=== PATIENT | female | born 1990 | race African-American/Black ===

== ENCOUNTER 2017-10-07 08:56 | Emergency (ER) | payer OTHER ==
[2017-10-07] MEDS ORDERED: Erythromycin Base 0.5% Ophth Oint 3.5 gm Tube ONE (09:06)
== END 2017-10-07 09:17 | disposition home or self-care (01) ==
LOC: BURERS 08:56
DX: H10.9 Unspecified conjunctivitis (principal); I10 Essential (primary) hypertension; J45.909 Unspecified asthma, uncomplicated; F32.9 Major depressive disorder, single episode, unspecified; F41.9 Anxiety disorder, unspecified
CPT/HCPCS: 99282

== ENCOUNTER 2018-06-12 07:55 | Emergency (ER) | payer OTHER ==
[2018-06-12] MEDS ORDERED: AMOXicillin 250 MG CAP ONE (08:06)
[2018-06-12] MEDS ORDERED: Ibuprofen 800 MG TAB ONE (08:11)
== END 2018-06-12 18:40 | disposition home or self-care (01) ==
LOC: BURERS 07:55
DX: H66.91 Otitis media, unspecified, right ear (principal); I10 Essential (primary) hypertension; F41.9 Anxiety disorder, unspecified; F32.9 Major depressive disorder, single episode, unspecified; J45.909 Unspecified asthma, uncomplicated
CPT/HCPCS: 99282

== ENCOUNTER 2018-06-13 00:15 | Emergency (ER) | payer OTHER ==
[2018-06-13] MEDS ORDERED: Morphine 10 MG/ML VIAL ONE (00:33)
[2018-06-13] MEDS ORDERED: Ketorolac Tromethamine 60 MG/2 ML VIAL ONE (00:40)
== END 2018-06-13 00:48 | disposition home or self-care (01) ==
LOC: BURERS 00:15
DX: H62.41 Otitis externa in other diseases classified elsewhere, right ear (principal); I10 Essential (primary) hypertension; F41.9 Anxiety disorder, unspecified; F32.9 Major depressive disorder, single episode, unspecified
CPT/HCPCS: 96372; J1885; J2270

== ENCOUNTER 2020-01-25 00:41 | Emergency (ER) | payer OTHER ==
[2020-01-25] MEDS ORDERED: ALPRAZolam 0.5 MG TAB ONE (00:53)
--- NOTE | 2020-01-25 09:45 | RAD ---
CHEST 2 VIEWS: Date: 01/25/2020 Comparison made with the 09/15/09 study. The heart is normal in size and the lungs are clear. There is no vascular congestion, edema, or pleur al effusion. There is no sign of aspiration pneumonia. The trachea is midline. IMPRESSION: No acute thoracic findings. POS: HOME
== END 2020-01-25 01:39 | disposition home or self-care (01) ==
LOC: BURERS 00:41
DX: F41.0 Panic disorder [episodic paroxysmal anxiety] (principal); R06.02 Shortness of breath; I10 Essential (primary) hypertension; J45.909 Unspecified asthma, uncomplicated; F41.9 Anxiety disorder, unspecified; F32.9 Major depressive disorder, single episode, unspecified; Z79.51 Long term (current) use of inhaled steroids; Z79.899 Other long term (current) drug therapy
CPT/HCPCS: 71046; 93005; 94760

== ENCOUNTER → 2020-02-17 | Emergency (ER) | payer OTHER ==
[2020-02-17 22:10] LABS: BHCG - Serum Negative (NEGATIVE); Pregs Control Background? CLEAR/WHITE (CLR/WHITE); Pregs Control Bar Appear? YES (CONTROL BAR)
[2020-02-17 22:23] LABS: ALT (SGPT) 33 U/L (8-55); AST (SGOT) 31 U/L (5-34); Albumin 4.1 g/dL (3.5-5.0); Alkaline Phosphatase 85 U/L (40-110); Anion Gap 17 mmol/L (10-20); BUN (Urea Nitrogen) 11 mg/dL (7.0-18.7); Bilirubin, Total 0.3 mg/dL (0.2-1.2); Calc. Creatinine Clearance 0 mL/min (70-130); Calcium 8.9 mg/dL (7.8-10.44); Carbon Dioxide 20 mmol/L (22-29); Chloride 106 mmol/L (98-107); Estimated GFR-MDRD Greater than 90; Globulin 3.9 g/dL (2.4-3.5); Glucose 119 mg/dL (70-105); Potassium 4.6 mmol/L (3.5-5.1); Sodium 138 mmol/L (136-145)
[2020-02-17 22:24] LABS: Band 3 % (5-11); Eosinophils 1 % (0-10); Hemoglobin 14.4 g/dL (12.0-16.0); Lymphocytes 32 % (21-51); MDiff Complete? YES; Mean Corpuscular HGB CONC 33.3 g/dL (32.0-36.0); Mean Corpuscular Hemoglobin 30.9 pg (27.0-31.0); Mean Corpuscular Volume 92.9 fL (78.0-98.0); Mean Platelet Volume 7.4 fL (7.4-10.4); Monocytes 14 % (0-10); Neutrophil 48 % (42-75); Platelet Count 237 thou/uL (130-400); Platelet Morphology Comment Appears Adequate; RBC Morphology Normal; Reactive Lymphocytes 2 % (0-10); Red Blood Cell (RBC) Count 4.65 mill/uL (4.20-5.40); Vacuoles SLIGHT; White Blood Cell (WBC) Count 3.9 thou/uL (4.8-10.8)
--- NOTE | 2020-02-17 22:57 | RAD ---
PORTABLE CHEST: 02/17/20 An AP portable film at 1016 is compared with a 01/25/2020 study. The heart size is normal. The lungs are probably clear. The only area in question is the left base, o ften difficult to see well on portable films. If there are any signs and symptoms of pneumonia, then she might need a follow-up PA and lateral view. If not, the finding can probably be safely ascribed to portable technique and slight rotation. The mediastinum appears normal. IMPRESSION: Probably negative study. See above. POS: HOME
== END ==
LOC: BURERS 21:36
DX: R07.9 Chest pain, unspecified (principal); I10 Essential (primary) hypertension; J45.909 Unspecified asthma, uncomplicated; F41.9 Anxiety disorder, unspecified; F32.9 Major depressive disorder, single episode, unspecified; Z79.899 Other long term (current) drug therapy
CPT/HCPCS: 71045; 80053; 84484; 84703; 85025; 85379; 93005

== ENCOUNTER 2020-04-13 14:22 | Emergency (ER) | payer OTHER | END 2020-04-13 14:42 | disposition home or self-care (01) | LOC: BURERS 14:22 | DX: I10 Essential (primary) hypertension (principal); J45.909 Unspecified asthma, uncomplicated; F41.9 Anxiety disorder, unspecified; F32.9 Major depressive disorder, single episode, unspecified; Z79.899 Other long term (current) drug therapy | CPT/HCPCS: 99281 ==

== ENCOUNTER 2020-09-10 10:08 | Emergency (ER) | payer OTHER ==
[2020-09-10] MEDS ORDERED: diphenhydrAMINE 50 MG/ML VIAL ONE (11:21)
[2020-09-10] MEDS ORDERED: Metoclopramide HCl 10 MG/2 ML VIAL ONE (11:21)
[2020-09-10 11:28] LABS: #Basophils 0.1 thou/uL (0.0-0.2); #Eosinphils 0.1 thou/uL (0.0-0.7); #Lymphocytes 1.1 thou/uL (1.20-3.40); #Monocytes 0.6 thou/uL (0.11-0.59); #Neutrophils 3.1 thou/uL (1.40-6.50); %Eosinophils 1.3 % (0.0-10.0); %Lymphocytes 22.2 % (21.0-51.0); %Monocytes 11.9 % (0.0-10.0); %Neutrophils 63.6 % (42.0-75.0); Mean Corpuscular HGB CONC 33.6 g/dL (32.0-36.0); Mean Corpuscular Volume 92.3 fL (78.0-98.0); Mean Platelet Volume 7.1 fL (7.4-10.4); Platelet Count 236 thou/uL (130-400); RBC Distribution Width 11.1 % (11.5-14.5); Red Blood Cell (RBC) Count 4.53 mill/uL (4.20-5.40); White Blood Cell (WBC) Count 4.8 thou/uL (4.8-10.8)
[2020-09-10 11:39] LABS: Pregnancy Test - Urine (BHCG) Negative (Negative); Pregu Control Background? CLEAR/WHITE (CLR/WHITE); Pregu Control Bar Appear? YES (CONTROL BAR)
[2020-09-10] MEDS ORDERED: Ketorolac Tromethamine 30 MG/ML VIAL ONE (11:43)
[2020-09-10 11:46] LABS: ALT (SGPT) 45 U/L (8-55); AST (SGOT) 35 U/L (5-34); Alkaline Phosphatase 77 U/L (40-110); Anion Gap 14 mmol/L (10-20); BUN (Urea Nitrogen) 12 mg/dL (7.0-18.7); Bilirubin, Total 0.4 mg/dL (0.2-1.2); Calc. Creatinine Clearance 0 mL/min (70-130); Calcium 9.1 mg/dL (7.8-10.44); Carbon Dioxide 24 mmol/L (22-29); Chloride 102 mmol/L (98-107); Estimated GFR-MDRD Greater than 90; Globulin 3.7 g/dL (2.4-3.5); Glucose 117 mg/dL (70-105); Protein, Total 7.7 g/dL (6.0-8.3); Sodium 136 mmol/L (136-145)
== END 2020-09-10 12:52 | disposition home or self-care (01) ==
LOC: BURERS 10:08
DX: R11.2 Nausea with vomiting, unspecified (principal); R19.7 Diarrhea, unspecified; R51.9 Headache, unspecified; F41.9 Anxiety disorder, unspecified; F32.9 Major depressive disorder, single episode, unspecified; J45.909 Unspecified asthma, uncomplicated; I10 Essential (primary) hypertension; Z79.899 Other long term (current) drug therapy
CPT/HCPCS: 36415; 80053; 81025; 85025; 96365; 96375; J1200; J1885; J2765

== ENCOUNTER 2020-11-06 00:26 | Emergency (ER) | payer OTHER ==
[2020-11-06] MEDS ORDERED: predniSONE 20 MG TAB ONE (01:05)
[2020-11-06 20:01] LABS: SARS-CoV-2 MS2 Positive; SARS-CoV-2 N Gene Positive; SARS-CoV-2 S Gene Negative; SARS-CoV-2 by NAA DETECTED (NotDetected); SARS-CoV-2 orf1ab Positive
== END 2020-11-06 01:05 | disposition home or self-care (01) ==
LOC: BURERS 00:26
DX: U07.1 COVID-19 (principal); J02.9 Acute pharyngitis, unspecified; E66.9 Obesity, unspecified; I10 Essential (primary) hypertension; J45.909 Unspecified asthma, uncomplicated; Z79.899 Other long term (current) drug therapy
CPT/HCPCS: 87081; 87430; 87635; 99283; J7512; U0003

== ENCOUNTER 2020-11-11 12:44 | Emergency (ER) | payer OTHER | END 2020-11-11 13:28 | disposition home or self-care (01) | LOC: BURERS 12:44 | DX: U07.1 COVID-19 (principal); J45.901 Unspecified asthma with (acute) exacerbation; E66.9 Obesity, unspecified; I10 Essential (primary) hypertension; Z79.899 Other long term (current) drug therapy | CPT/HCPCS: 99284 ==

== ENCOUNTER 2021-07-14 23:07 | Emergency (ER) | payer OTHER ==
[2021-07-14] MEDS ORDERED: predniSONE 20 MG TAB ONE (23:27)
== END 2021-07-14 23:45 | disposition home or self-care (01) ==
LOC: BURERS 23:07
DX: J04.0 Acute laryngitis (principal); R06.00 Dyspnea, unspecified; I10 Essential (primary) hypertension; J45.909 Unspecified asthma, uncomplicated; E66.9 Obesity, unspecified; Z79.899 Other long term (current) drug therapy
CPT/HCPCS: 94640; J7512; J7620

== ENCOUNTER 2021-07-21 11:25 | Emergency (ER) | payer OTHER ==
[~2021-07-21 11:25] MED LIST: Iopamidol 370 76% 100 ML VIAL ONE
[2021-07-21 11:56] LABS: Bilirubin Small (Negative); Blood, Urine Negative (Negative); Clarity Cloudy (Clear); Glucose, Urine (Dipstick) Negative (Negative); Ketone, Urine Trace mg/dL (Negative); Leukocyte Negative (Negative); Nitrite Negative (Negative); Protein, Urine (Dipstick) Trace mg/dL (Neg-Trace)
[2021-07-21 12:00] LABS: Pregnancy Test - Urine (BHCG) Negative (Negative)
[2021-07-21 12:01] LABS: Pregu Control Background? CLEAR/WHITE (CLR/WHITE); Pregu Control Bar Appear? YES (CONTROL BAR)
[2021-07-21 12:02] LABS: Hemoglobin 14.4 g/dL (12.0-16.0); Mean Corpuscular HGB CONC 33.8 g/dL (32.0-36.0); Mean Corpuscular Hemoglobin 31.4 pg (27.0-31.0); Mean Corpuscular Volume 92.7 fL (78.0-98.0); Mean Platelet Volume 7.2 fL (7.4-10.4); Platelet Count 224 thou/uL (130-400); RBC Distribution Width 11.2 % (11.5-14.5); White Blood Cell (WBC) Count 3.4 thou/uL (4.8-10.8)
[2021-07-21 12:12] LABS: ALT (SGPT) 24 U/L (8-55); AST (SGOT) 19 U/L (5-34); Alkaline Phosphatase 77 U/L (40-110); Anion Gap 13 mmol/L (10-20); BUN (Urea Nitrogen) 16 mg/dL (7.0-18.7); Bilirubin, Total 0.5 mg/dL (0.2-1.2); Calc. Creatinine Clearance 0 mL/min (70-130); Calcium 9.1 mg/dL (7.8-10.44); Carbon Dioxide 21 mmol/L (22-29); Chloride 107 mmol/L (98-107); Glucose 116 mg/dL (70-105); Sodium 137 mmol/L (136-145)
[2021-07-21 12:22] LABS: Band 2 % (5-11); Eosinophils 1 % (0-10); Lymphocytes 34 % (21-51); MDiff Complete? YES; Monocytes 25 % (0-10); Neutrophil 35 % (42-75); Reactive Lymphocytes 3 % (0-10)
[2021-07-21] MEDS ORDERED: Ketorolac Tromethamine 30 MG/ML VIAL ONE (12:26)
[2021-07-21] MEDS ORDERED: cefTRIAXone\\ROCEPHIN 500 MG VIAL ONE (13:32)
[2021-07-21] MEDS ORDERED: Sodium Chloride 0.9% 100 ML ONE (13:32)
[2021-07-21] MEDS ORDERED: Azithromycin 500 MG VIAL ONE (14:15)
[2021-07-24 20:09] LABS: Chlamydia by PCR Not Detected (NotDetected); GC by PCR Not Detected (NotDetected)
== END 2021-07-21 14:36 | disposition short-term general hospital (02) ==
LOC: BURERS 11:25
DX: R10.32 Left lower quadrant pain (principal); I10 Essential (primary) hypertension; F17.210 Nicotine dependence, cigarettes, uncomplicated
CPT/HCPCS: 51701; 74177; 80053; 81003; 81025; 85025; 87480; 87491; 87510; 87591; 87660; 94760; 96365; 96375; J0456; J0696; J1885; J3490; Q9967

== ENCOUNTER 2022-05-19 15:43 | Emergency (ER) | payer BC | END 2022-05-19 16:13 | disposition home or self-care (01) | LOC: BURERS 15:43 | DX: U07.1 COVID-19 (principal); I10 Essential (primary) hypertension; J45.909 Unspecified asthma, uncomplicated; E66.9 Obesity, unspecified; Z68.45 Body mass index [BMI] 70 or greater, adult | CPT/HCPCS: 99283; U0003; U0005 ==

== ENCOUNTER 2022-05-23 12:28 | Emergency (ER) | payer BC ==
[2022-05-23] MEDS ORDERED: Acetaminophen 500 MG TAB ONE (12:53)
== END 2022-05-23 13:00 | disposition home or self-care (01) ==
LOC: BURERS 12:28
DX: H60.501 Unspecified acute noninfective otitis externa, right ear (principal); H69.81 Other specified disorders of Eustachian tube, right ear; J45.909 Unspecified asthma, uncomplicated; E66.9 Obesity, unspecified; I10 Essential (primary) hypertension; Z79.899 Other long term (current) drug therapy; Z79.51 Long term (current) use of inhaled steroids
CPT/HCPCS: 99282

== ENCOUNTER 2022-11-07 23:45 | Emergency (ER) | payer BC ==
[2022-11-08] MEDS ORDERED: Ondansetron ODT 4 MG TAB ONE (00:14)
== END 2022-11-08 01:08 | disposition home or self-care (01) ==
LOC: BURERS 23:45
DX: J06.9 Acute upper respiratory infection, unspecified (principal); Z20.822 Contact with and (suspected) exposure to COVID-19
CPT/HCPCS: 87804; 99283; Q0162; U0003; U0005

== ENCOUNTER 2023-01-03 09:02 | Emergency (ER) | payer BC | END 2023-01-03 09:17 | disposition home or self-care (01) | LOC: BURERS 09:02 | DX: S90.562A Insect bite (nonvenomous), left ankle, initial encounter (principal); I10 Essential (primary) hypertension; Z79.899 Other long term (current) drug therapy; W57.XXXA Bitten or stung by nonvenomous insect and other nonvenomous arthropods, initial encounter | CPT/HCPCS: 99282 ==

== ENCOUNTER 2023-01-08 10:28 | Emergency (ER) | payer BC ==
[2023-01-08] MEDS ORDERED: Metoclopramide HCl 10 MG TAB ONE (12:16)
[2023-01-08] MEDS ORDERED: traMADol HCl 50 MG TAB ONE (12:16)
[2023-01-08] MEDS ORDERED: Acetaminophen 325 MG TAB ONE (12:16)
== END 2023-01-08 12:20 | disposition home or self-care (01) ==
LOC: BURERS 10:28
DX: G43.909 Migraine, unspecified, not intractable, without status migrainosus (principal); I10 Essential (primary) hypertension; E66.9 Obesity, unspecified
CPT/HCPCS: 99283

== ENCOUNTER 2023-04-19 04:36 | Emergency (ER) | payer BC ==
[2023-04-19 05:30] LABS: Bilirubin Negative (Negative); Blood, Urine Large (Negative); Clarity Clear (Clear); Glucose, Urine (Dipstick) Negative (Negative); Ketone, Urine Negative (Negative); Leukocyte Negative (Negative); Nitrite Negative (Negative); Protein, Urine (Dipstick) Negative (Neg-Trace)
[2023-04-19 05:33] LABS: Bacteria/HPF Rare-Few HPF (None Seen); CAUTI Indications for Culture Pregnancy; Mucous/LPF None Seen LPF (<2+); Squamous Epithelial 0-3 HPF (0-3); WBC/HPF 0-3 HPF (0-3)
[2023-04-19 05:34] LABS: Urine Culture Reflex Yes Yes
[2023-04-19 05:39] LABS: Hemoglobin 13.5 g/dL (12.0-16.0); Mean Corpuscular HGB CONC 35.3 g/dL (32.0-36.0); Mean Corpuscular Hemoglobin 32.1 pg (27.0-31.0); Mean Platelet Volume 6.6 fL (7.4-10.4); Platelet Count 183 10x3/uL (130-400); RBC Distribution Width 10.3 % (11.5-14.5); Red Blood Cell (RBC) Count 4.19 mill/uL (4.20-5.40); White Blood Cell (WBC) Count 3.8 10x3/uL (4.8-10.8)
[2023-04-19 06:10] LABS: Eosinophils 2 % (0-10); Lymphocytes 39 % (21-51); MDiff Complete? YES; Monocytes 14 % (0-10); Neutrophil 45 % (42-75)
== END 2023-04-19 06:26 | disposition home or self-care (01) ==
LOC: BURERS 04:36
DX: O20.0 Threatened abortion (principal); O99.211 Obesity complicating pregnancy, first trimester; O10.911 Unspecified pre-existing hypertension complicating pregnancy, first trimester; Z3A.12 12 weeks gestation of pregnancy; Z79.899 Other long term (current) drug therapy
CPT/HCPCS: 36415; 81001; 84702; 85025; 86900; 86901; 87086; 99284

== ENCOUNTER 2023-08-01 08:24 | Emergency (ER) | payer BC, OTHER ==
[2023-08-01 08:58] LABS: #Eosinphils 0.1 thou/uL (0.0-0.7); #Lymphocytes 0.9 thou/uL (1.20-3.40); #Monocytes 0.6 thou/uL (0.11-0.59); #Neutrophils 2.7 thou/uL (1.40-6.50); %Basophils 0.4 % (0.0-1.0); %Eosinophils 2.1 % (0.0-10.0); %Lymphocytes 20.9 % (21.0-51.0); %Monocytes 13.6 % (0.0-10.0); Hematocrit 38.6 % (36.0-47.0); Hemoglobin 13.2 g/dL (12.0-16.0); Mean Corpuscular HGB CONC 34.3 g/dL (32.0-36.0); Mean Corpuscular Hemoglobin 30.9 pg (27.0-31.0); Mean Corpuscular Volume 89.9 fl (78.0-98.0); Mean Platelet Volume 6.7 fL (7.4-10.4); Platelet Count 228 10x3/uL (130-400); RBC Distribution Width 11.5 % (11.5-14.5); Red Blood Cell (RBC) Count 4.29 mill/uL (4.20-5.40); White Blood Cell (WBC) Count 4.3 10x3/uL (4.8-10.8)
[2023-08-01 09:09] LABS: Bilirubin Negative (Negative); Blood, Urine Negative (Negative); Glucose, Urine (Dipstick) Negative (Negative); Ketone, Urine Negative (Negative); Leukocyte Negative (Negative); Nitrite Negative (Negative); Protein, Urine (Dipstick) 30 mg/dL (Neg-Trace); Urobilinogen 0.2 mg/dL (Less than 2); pH, Urine 7.5 (5.0-9.0)
[2023-08-01 09:17] LABS: Clarity Hazy (Clear)
[2023-08-01 09:17] LABS: ALT (SGPT) 22 U/L (8-55); AST (SGOT) 32 U/L (5-34); Albumin 3.2 g/dL (3.5-5.0); Alkaline Phosphatase 114 U/L (40-110); Anion Gap 15 mmol/L (10-20); BUN (Urea Nitrogen) 9 mg/dL (7.0-18.7); Bilirubin, Total 0.3 mg/dL (0.2-1.2); Calc. Creatinine Clearance 0 mL/min (70-130); Calcium 9.1 mg/dL (7.8-10.44); Carbon Dioxide 17 mmol/L (22-29); Chloride 108 mmol/L (98-107); Estimated GFR 121; Globulin 3.5 g/dL (2.4-3.5); Glucose 123 mg/dL (70-105); Lipase 21 U/L (8-78); Potassium 3.9 mmol/L (3.5-5.1); Protein, Total 6.7 g/dL (6.0-8.3); Sodium 136 mmol/L (136-145); Troponin I Less than 0.010 ng/mL (< 0.028)
[2023-08-01 09:18] LABS: Bacteria/HPF Rare-Few HPF (None Seen); CAUTI Indications for Culture Pregnancy; RBC/HPF None Seen HPF (0-3); WBC/HPF None Seen HPF (0-3)
[2023-08-01 09:20] LABS: Urine Culture Reflex Yes Yes
[2023-08-01] MEDS ORDERED: Cyclobenzaprine 10 MG TAB ONE (09:24)
[2023-08-01] MEDS ORDERED: Acetaminophen 500 MG TAB ONE (09:24)
[2023-08-01 10:11] LABS: SARS-CoV-2 NAA Rapid Test Not Detected (NotDetected)
== END 2023-08-01 10:42 | disposition home or self-care (01) ==
LOC: BURERS 08:24
DX: R07.89 Other chest pain (principal); R05.9 Cough, unspecified; R00.0 Tachycardia, unspecified; J45.909 Unspecified asthma, uncomplicated; E66.9 Obesity, unspecified; I10 Essential (primary) hypertension; Z20.822 Contact with and (suspected) exposure to COVID-19
CPT/HCPCS: 80053; 81001; 83690; 84484; 85025; 87086; 93005; 96360

== ENCOUNTER 2024-11-11 22:08 | Emergency (ER) | payer BC, MEDICAID, SELFPAY ==
[2024-11-11] MEDS ORDERED: Ibuprofen 800 MG TAB ONE (22:23)
== END 2024-11-11 23:00 | disposition home or self-care (01) ==
LOC: BURERS 22:08
DX: J02.9 Acute pharyngitis, unspecified (principal); E11.9 Type 2 diabetes mellitus without complications; I10 Essential (primary) hypertension
CPT/HCPCS: 87081; 87430; 99283

== ENCOUNTER 2025-08-08 17:50 | Emergency (ER) | payer BC | END 2025-08-08 18:37 | disposition home or self-care (01) | LOC: BURERS 17:50 | DX: B34.9 Viral infection, unspecified (principal); E11.9 Type 2 diabetes mellitus without complications; I10 Essential (primary) hypertension; J45.909 Unspecified asthma, uncomplicated; Z79.51 Long term (current) use of inhaled steroids; Z79.4 Long term (current) use of insulin; Z79.899 Other long term (current) drug therapy | CPT/HCPCS: 87428; 99283 ==